=== PATIENT | male | born 1930 | race Caucasian/White ===

== ENCOUNTER 2016-10-30 14:22 | Emergency (ER) | payer MEDICARE ==
[~2016-10-30 14:22] MED LIST: ACCU10 PO; ACCU20 PO; ACTOS30 PO; ASAB PO; COREG12 PO; COREG3 PO; COREG6 PO; CRESTOR10 PO; CRESTOR5 MG PO; FLOMAX0.4 M1 OR; FLOMAX4 PO; L20 PO; LANTUS SC; LANTUSCART SC; LOFIBRA134 MG PO; LOP25 PO; LOPID6 PO; MEXILETINE OR; MEXILETINE150 MG OR; MEXILETINE250 MG OR; NORV10 PO; PLAVIX PO; PREV30 PO; PRILO PO; STARLIX120 PO; TRADJENTA5 MG PO
[2016-10-30 15:17] LABS: BASOPHILS 0.4 %; BASOPHILS ABSOLUTE 0.03 10/3/uL (0.0-0.16); EOSINOPHILS 4.5 %; EOSINOPHILS ABSOLUTE 0.35 10/3/uL (0.0-0.53); HEMATOCRIT 36.4 % (40.0-51.0); HEMOGLOBIN 12.2 g/dL (13.6-17.8); IMMATURE GRANULOCYTES 0.1 %; IMMATURE GRANULOCYTES ABSOLUTE 0.01 10/3/uL (0.0-0.11); LYMPHOCYTES 15.4 %; LYMPHOCYTES ABSOLUTE 1.21 10/3/uL (0.67-4.30); MEAN CORPUS HGB CONC 33.5 g/dL (32.0-36.0); MEAN CORPUSCULAR HEMOGLOB 29.7 pg (26.0-34.0); MEAN CORPUSCULAR VOLUME 88.6 fL (80-100); MEAN PLATELET VOLUME 10.6 fL (9.2-13.0); MONOCYTES 8.4 %; MONOCYTES ABSOLUTE 0.66 10/3/uL (0.21-1.20); NEUTROPHILS 71.2 %; NEUTROPHILS ABSOLUTE 5.58 10/3/uL (2.02-8.40); PLATELET COUNT 161 10/3/uL (150-400); RBC DISTRIBUTION WIDTH 14.7 % (12.0-16.0); RED CELL COUNT 4.11 10/6/uL (4.7-6.1); WHITE BLOOD CELLS 7.8 10/3/uL (4.5-10.5)
[2016-10-30 15:18] LABS: MANUAL DIFF NO %
[2016-10-30 15:35] LABS: A/G RATIO 1.2 (0.7-1.9); ALBUMIN 3.6 G/DL (3.5-5.0); CALCIUM, SERUM 9.5 MG/DL (8.5-10.4); CHLORIDE, SERUM 104 MMOL/L (96-112); CO2 (CARBON DIOXIDE) 28 MMOL/L (24-34); CREATININE 1.36 MG/DL (0.70-1.30); GFR AFRICAN AMERICAN 53 ML/MIN (>=60); GFR NON AFRICAN AMERICAN 46 ML/MIN (>=60); POTASSIUM, SERUM 4.2 MMOL/L (3.5-5.3); SGOT(AST) 21 U/L (5-40); SGPT(ALT) 26 U/L (5-65); SODIUM, SERUM 140 MMOL/L (135-148); TOTAL BILIRUBIN 0.4 MG/DL (0-1.2); TOTAL PROTEIN 6.6 G/DL (6.0-8.5)
[2016-10-30 15:38] LABS: ALKALINE PHOSPHATASE 77 U/L (45-117); BUN (BLOOD UREA NITROGEN) 19 MG/DL (6-23); GLUCOSE, SERUM 210 MG/DL (60-99)
[2016-10-30 17:14] LABS: C-REACTIVE PROTEIN < 29.0 MG/L (<8.0)
== END 2016-10-30 20:30 | disposition home or self-care (01) ==
LOC: ER 14:22
PROVIDERS: Hospitalist
DX: R51 Headache (principal); Z98.61 Coronary angioplasty status; Z95.1 Presence of aortocoronary bypass graft; E10.9 Type 1 diabetes mellitus without complications; Z88.5 Allergy status to narcotic agent; Z79.899 Other long term (current) drug therapy
CPT/HCPCS: 70496; 70498; 80053; 82962; 85025; 85652; 86140; 93005; 96374; 96375; 99285; J1200; J2765; Q9967

== ENCOUNTER 2017-01-14 12:58 | Inpatient (IN) | payer MEDICARE ==
--- NOTE | ~2017-01-14 | HP ---
History And Physical [id number] [place]. [address] NAME: FRANCES SALDIVAR : [birth year] STATUS : ADM Kalpana PAT#: [id number] AGE: 86 ADM/REG DATE : 01/14/17 MR#: [id number] REPORT SERV DATE: 01/15/17 DICTATED BY: CATRACHITA HUTSON DATE: 01/15/17 REPORT STATUS : Draft TRANSCRIBED BY: MODL DATE: 01/15/17 DATE OF ADMISSION: 01/14/2017 K9 HANDLER: Sean Hartman MD CHIEF COMPLAINT: Fatigue and tired for two months. HISTORY OF PRESENT ILLNESS: A very pleasant 86-year-old white male with known history of CAD, status post reported two MIs and two stents most recently one DUSTIN to vein graft to [facility] placed in 12/2014. The patient also has a history of CABG x5 in 1997. The patient states that on Saturday, 01/12, he fell asleep in a chair on the porch while reading the newspaper. He dropped a glass of water, which broke on the porch and woke him up. He states he has had a previous similar episodes of falling asleep, which is unusual for him. Over the past two months, he reports episodes of fatigue and feeling tired. He denies any chest pain, pressure, or tightness. He denies any hematuria, any melena in the stool, and no change in bruising of his skin. He was seen at [facility] on Saturday, 01/12. Lab and EKG were performed. He states that somebody mentioned "enzymes" to him with recommendation to stay at that facility, but the patient preferred to be discharged home. He states that he got to thinking about those enzymes performed at [facility] and decided to come here for further treatment and evaluation. The patient reports a personal history of two heart attacks. Denies history of stroke, DVT, or pulmonary embolus. The patient denies any recent fever or chills. No palpitations. No syncopal episodes. Denies PND or orthopnea. PAST MEDICAL HISTORY: 1. CAD. a. Reports CO x2. b. History of two stents most recently 12/2014 DUSTIN to vein graft to 1. c. CABG x5 in 1997. 2. Hypertension. 3. Dyslipidemia. 4. IDDM. 5. GERD. 6. Renal insufficiency. 7. Mild COPD. 8. Remote tobacco abuse. 9. RBBB. 10.Newly identified thrombocytopenia. PAST SURGICAL HISTORY: CABG x5 in 1997, bilateral cataract repair, and a skin cancer removed from back. SOCIAL HISTORY: He is . Does not have any children. He is retired, [employer] security. Does not have a structured exercise routine. Quit smoking in 2009. Denies alcohol or illicits. History And Physical [address] [address] NAME: FRANCES SALDIVAR : [birth year] STATUS : ADM Kalpana PAT#: [id number] AGE: 86 ADM/REG DATE : 01/14/17 MR#: [id number] REPORT SERV DATE: 01/15/17 DICTATED BY: CATRACHITA HUTSON DATE: 01/15/17 REPORT STATUS : Draft TRANSCRIBED BY: ROSY DATE: 01/15/17 FAMILY HISTORY: Mother with diabetes. Father with a heart attack in his 80s. REVIEW OF SYSTEMS: A 14-point review of systems performed, significant for HPI including home blood sugars of 110 and recent ER visit to [facility] on 01/12/2017, otherwise complete review of systems obtained and negative. HOME MEDICATIONS: Aspirin 81 mg daily; carvedilol 3.125 twice daily; clopidogrel 75 mg daily; Lasix 20 mg daily; Tresiba 33 units at bedtime; Humalog 12 units at breakfast, 10 units at lunch, 25 units at supper; Prevacid 30 mg daily; Mexitil 250 mg daily; Optivite daily; Flomax 0.4 mg daily. PHYSICAL EXAMINATION: VITAL SIGNS: Bilateral blood pressures on arrival, right 179/103, left eye 180/90, this morning 152/84; pulse 80; respirations 17; temperature 97.4; O2 saturation 93% on room air; height 6 feet 0 inches; weight 205 pounds; BMI 28. GENERAL: Cooperative, in no apparent distress. HEENT: Pupils 2 mm, sclera nonicteric. Nares patent. Moist mucous membranes. No xanthelasma. NECK: Trachea midline, no thyromegaly. No JVD. No bruits. LYMPH: No cervical lymphadenopathy. No supraclavicular lymphadenopathy. RESPIRATORY: Unlabored respirations. Breath sounds clear bilaterally to posterior auscultation. No wheezes or rhonchi. CARDIOVASCULAR: Regular rate. No murmur, rub or gallop appreciated. Trace ankle edema. Pedal pulses 1+ bilaterally. Feet cool to touch. ABDOMEN: Soft, nontender, nondistended, normal bowel sounds auscultated throughout. No organomegaly. SKIN: Warm, dry extremities. No pallor, or cyanosis. PSYCHIATRIC: Appropriate affect. Alert, oriented x3. LABORATORY DATA: Troponin 0.13 and 0.13, third pending. Potassium 3.7, BUN 22, creatinine 1.39 (baseline 1.4), glucose 126, magnesium 1.7. WBC 8.1; hemoglobin 12.9; hematocrit 38.5; platelet count 11,000, previously 150-170. EKG is sinus rhythm, RBBB, LAD, LVH, occasional PVC. Echo, 10/2016 ([facility]): EF 60%. Dilated ascending aorta (43 mm). Biatrial enlargement. LVH. Moderate MR. Moderate pulmonary hypertension. PCI 12/2014 put ([facility]): Severe three-vessel CAD. Patent DUBON to LAD, patent vein graft to PDA, and patent vein graft to ramus. [employer] of vein graft to OM2. DUSTIN to vein graft to OM1. CT of brain: No acute intracranial abnormality. Atrophy. Chronic microvascular white matter changes. ASSESSMENT AND PLAN: History And Physical [address] [address] NAME: FRANCES SALDIVAR : [birth year] STATUS : ADM Kalpana PAT#: [id number] AGE: 86 ADM/REG DATE : 01/14/17 MR#: [id number] REPORT SERV DATE: 01/15/17 DICTATED BY: CATRACHITA HUTSON DATE: 01/15/17 REPORT STATUS : Draft TRANSCRIBED BY: MODL DATE: 01/15/17 1. Fatigue. Recheck CBC to follow trend of platelets. Check a TSH. Third troponin pending. The patient has had no chest pain. Consider discontinuing Plavix given thrombocytopenia. Will discuss with rounding physician, doubt need for further cardiac testing during this hospitalization. 2. Coronary artery disease. Continue home medications. 3. Thrombocytopenia. Recheck platelet count via CBC and obtain a recent lab from [facility] as well. 4. Hypertension. Monitor blood pressure. Continue home medications. 5. Dyslipidemia. Continue statin. 6. Insulin-dependent diabetes mellitus. Continue home medications. 7. Further recommendations forthcoming. ZOFIA/MODL FREDERIC Jaffe, MANGLE [employer]ENDER CLOTH-BC / [id number] CC: FREDERIC Jaffe, MANGLE TENDER CLOTH-BC Charla Raya M.D.
--- NOTE | ~2017-01-14 | CN ---
Consultation Report [facility] [address] [place]. [address] NAME: FRANCES SALDIVAR : [birth year] STATUS : ADM IN [facility]#: [id number] AGE: 86 ADM/REG DATE : 01/15/17 MR#: [id number] REPORT SERV DATE: 01/20/17 DICTATED BY: HANSA MENDEZ DATE: 01/20/17 REPORT STATUS : Draft TRANSCRIBED BY: MODL DATE: 01/20/17 NEPHROLOGY CONSULTATION DATE OF CONSULTATION: 01/20/2017 INDICATION FOR CONSULTATION: Acute on chronic kidney disease. HISTORY OF PRESENT ILLNESS: Mr. Saldivar is an 86-year-old male who is seen for acute on chronic kidney disease following initial presentation on 01/15/2017 with chest pain and history of syncopal episodes with nonsustained V-tach. His baseline creatinine ranges 1.3 to 1.4 and has risen from 1.39 to a value of 2.01 since admission. He has been on Lasix and was recently initiated on acyclovir due to encephalopathy with acute delirium and recent history of herpes zoster infection. His spinal tap did reveal elevated protein, elevated lymphocytes, and mild elevation in spinal WBCs with normal glucose. He presently is encephalopathic and nonverbal. PAST MEDICAL HISTORY: CKD stage 3, baseline creatinine 1.3 to 1.4; recent herpes zoster infection; remote RI x2; coronary artery bypass grafting, five vessels 1992, PCI in 2009; type 2 diabetes mellitus; hypertension; hyperlipidemia; COPD; ITP with ongoing thrombocytopenia; anemia; gastroesophageal reflux disease; esophageal stricture requiring dilatation; removal of skin cancers; bilateral cataract surgery, lens implants; BPH; hiatal hernia; osteoarthritis. FAMILY HISTORY: Unable to obtain chart reflex. Mother with diabetes. Father with RI in his 80s. SOCIAL HISTORY: He is a . No children. Retired from [employer] security. Quit smoking in 1992. No alcohol or illicit drug use per chart. ALLERGIES: ALLERGIC TO MORPHINE PER CHART. HOME MEDICATIONS: Aspirin, carvedilol, Plavix, Lasix, regular insulin, Humalog insulin, Prevacid, mexiletine, multivitamin, Flomax. REVIEW OF SYSTEMS: Unable to obtain. PHYSICAL EXAMINATION: GENERAL: Elderly male, nonverbal, somewhat agitated with NG tube in place. VITAL SIGNS: Temp 98.7, blood pressure 170/92, pulse 91, respiratory rate 26. HEENT: Eyes, no scleral icterus. Pupils reactive. Nares with NG tube in place. Throat, no injection. Mucous membranes moist. NECK: No thyromegaly, masses, bruits. CHEST/LUNGS: Late crackles laterally. No wheezes. No rhonchi. Consultation Report [id number] [place]. [address] NAME: FRANCES SALDIVAR : [birth year] STATUS : ADM IN [facility]#: [id number] AGE: 86 ADM/REG DATE : 01/15/17 MR#: [id number] REPORT SERV DATE: 01/20/17 DICTATED BY: HANSA MEDNEZ DATE: 01/20/17 REPORT STATUS : Draft TRANSCRIBED BY: ROSY DATE: 01/20/17 CARDIAC: Regular rate and rhythm. No murmur, gallop, or rub noted. ABDOMEN: Supple. Normoactive bowel sounds. Nontender. No guarding. No hepatosplenomegaly. : Indwelling Charles. RECTAL: Not performed. EXTREMITIES: No edema. No calf tenderness. DERMIS: No rash. No overt skin lesions. NEUROLOGIC: The patient unable to cooperate for exam. MUSCULOSKELETAL: No deformity. No evidence of joint effusion or tenderness. IMPRESSION: 1. Acute on chronic kidney disease possibly prerenal state versus affects of acyclovir, superimposed on chronic kidney disease stage 3. 2. Encephalopathy with acute delirium. 3. Recent herpes zoster infection. 4. Remote myocardial infarction x2. 5. Status post CABG x5 in 1992 with PCI in 2009. 6. Type 2 diabetes mellitus. 7. Hypertension. 8. Chronic obstructive pulmonary disease. 9. Immune thrombocytopenic purpura. 10.Anemia. 11.History of gastroesophageal reflux disease. 12.Remote esophageal dilatation. PLAN: 1. Labs. 2. We would hold Lasix. 3. Renal ultrasound has been obtained and demonstrates normal size kidneys with no obstruction. 4. If creatinine continues to rise, may need to consider hold on acyclovir. SAULO/ROSY Hansa Mendez M.D. / [id number] CC: Priyanka Nichole M.D. Og Coronado M.D.
--- NOTE | ~2017-01-14 | CN ---
Consultation Report [facility] [address] [place]. [address] NAME: RFANCES SALDIVAR : [birth year] STATUS : ADM IN PAT#: [id number] AGE: 86 ADM/REG DATE : 01/15/17 MR#: [id number] REPORT SERV DATE: 01/19/17 DICTATED BY: DATE: REPORT STATUS : Draft TRANSCRIBED BY: MODL DATE: 01/19/17 DATE OF CONSULTATION: 01/19/2017 CHIEF COMPLAINT/REASON FOR CONSULT: Nonsustained ventricular tachycardia. PRIMARY HOSPITAL ADMINISTRATIVE ASSISTANT: Sean Hartman M.D. HISTORY OF PRESENT ILLNESS: Mr. Frances Aquino is an 86-year-old gentleman who was admitted through the Chest Pain Unit on 01/15/2017 for being fatigued and tired for two months. The patient had presented to an outside medical facility at [facility] and was told that he had abnormal cardiac biomarkers and he chose to go home, but then when he got to thinking about it, he came to the [facility] Emergency Department for additional evaluation. The patient had been complaining of falling asleep on the patio while reading a newspaper, dropping glasses of water, and being unusually fatigued and tired. The patient developed an encephalopathy during the course of his administration and it was noted that he had thrombocytopenia and was diagnosed with ITP. The history is taken from the medical record as the patient is unable to give any sort of history. He was transferred to the hospitalist service for further evaluation. Due to his encephalopathy, all his p.o. medications have been held, including aspirin, Plavix, mexiletine, and carvedilol, and the patient developed an 8-beat run of wide-complex tachycardia, likely nonsustained ventricular tachycardia this morning at 0439 hours. PAST MEDICAL HISTORY: 1. History of coronary artery disease, status post coronary bypass grafting x5 in 1998. Most recent cardiac catheterization demonstrated that the DUBON to the LAD, saphenous vein graft to the PDA, and saphenous vein graft to the ramus were patent. PCI was performed to saphenous vein graft to OM1. 2. Hypertension. 3. Hyperlipidemia. 4. Insulin-dependent diabetes mellitus. 5. Chronic kidney disease. 6. COPD. 7. Right bundle-branch block. SOCIAL HISTORY: The patient is . He quit smoking in 2009. He does not use alcohol or extracurricular drugs. FAMILY HISTORY: Significant for mother with diabetes and father with AL in his 80s. REVIEW OF SYSTEMS: All review of systems were reviewed and is negative except for dictated in HPI. PHYSICAL EXAMINATION: VITAL SIGNS: Temperature 99.1, pulses range between 92 and 126 beats per minute, Consultation Report [address] [place]. [address] NAME: FRANCES SALDIVAR : [birth year] STATUS : ADM IN [facility]#: [id number] AGE: 86 ADM/REG DATE : 01/15/17 MR#: [id number] REPORT SERV DATE: 01/19/17 DICTATED BY: DATE: REPORT STATUS : Draft TRANSCRIBED BY: MODL DATE: 01/19/17 respirations 24, oxygen saturations 96% on 3 L nasal cannula, blood pressures 149/85 to 125/74 currently. GENERAL: Mr. Saldivar is unable to answer any sort of questions. He is agitated, rolling back and forth. NECK: I could not appreciate jugular venous distention or carotid bruits. HEART: Tachycardic, regular. Soft S1, S2. I could not appreciate murmurs, rubs, or gallops. LUNGS: Lung bar[place] are diminished, but otherwise clear bilaterally. ABDOMEN: Soft and nontender. EXTREMITIES: Warm and well perfused. There is no pitting edema present. DATA: The EKG demonstrates a right bundle-branch block at a heart rate of 116 beats per minute. PVCs were noted. Ischemic changes are not appreciated. LABORATORY RESULTS: Note a sodium of 141, a potassium of 4.7, a BUN of 50, a creatinine of 1.98, up from 1.28 on admission. Glucose is 296. Hemoglobin 11.5, hematocrit 34.5, platelet count is up to 103. Potassium 4.7, magnesium 2.2. IMPRESSION REPORT AND PLAN: 1. Nonsustained ventricular tachycardia in the setting of having his antiarrhythmic and beta que held due to encephalopathy. 2. Known history of coronary artery disease, status post coronary artery bypass grafting and percutaneous coronary intervention. 3. Hypertension. 4. Hyperlipidemia. 5. Diabetes mellitus. 6. Right bundle-branch block. 7. Chronic obstructive pulmonary disease. 8. Idiopathic thrombocytopenic purpura with platelet recovery. RECOMMENDATIONS: 1. Would recommend placing an NG tube so that the patient can receive his Coreg and mexiletine. Would give IV metoprolol now while waiting for the IV labetalol drip to be started. 2. Once NG tube can be placed, then the patient can receive his p.o. medications. 3. Now that the platelets have recovered, would resume aspirin. 4. Would treat his underlying conditions. It has been my pleasure to participate in his care. RAGHAV/ROSY Daysi Frias Consultation Report [facility] [address] [place]. [address] NAME: FRANCES SALDIVAR : [birth year] STATUS : ADM IN [facility]#: [id number] AGE: 86 ADM/REG DATE : 01/15/17 MR#: [id number] REPORT SERV DATE: 01/19/17 DICTATED BY: DATE: REPORT STATUS : Draft TRANSCRIBED BY: MODL DATE: 01/19/17 Charla Lemus / [id number] CC: Charla Blankenship M.D.
--- NOTE | ~2017-01-14 | CN ---
Consultation Report [facility] [address] [place]. [address] NAME: FRANCES SALDIVAR : [birth year] STATUS : ADM IN PAT#: [id number] AGE: 86 ADM/REG DATE : 01/15/17 MR#: [id number] REPORT SERV DATE: 01/16/17 DICTATED BY: RUPINDER WYATT DATE: 01/16/17 REPORT STATUS : Draft TRANSCRIBED BY: MODL DATE: 01/16/17 NEUROLOGY CONSULTATION DATE OF CONSULTATION: 01/16/2017 REASON FOR CONSULTATION: Syncopal episodes with LOC and acute delirium. HOSPITALIST: Susan Moctezuma, MSN, [employer]-BC. ANALYTICAL STRATEGIST: Dr. Sean Hartman. HISTORY OF PRESENT ILLNESS: The patient is an 86-year-old male, who has a known history of coronary artery disease. He has had two MIs with recent stent placements. He also had a coronary artery bypass grafting in 1997. Recently, he has had episodes of syncope with LOC. For example, on Friday 01/12, he was on the porch reading a newspaper, he fell asleep, and the glass of water fell out of his hand, it broke on the porch, and then woke him up. He states that, he has had similar episodes recently which is very unusual for him. He also reports that he has had a lot of generalized fatigue. He went to [facility] on that day, 01/12/2017, he had some diagnostic testing done. When he heard that he was going to have cardiac testing done, he stated that he preferred to be discharged home, and came to [facility] for further evaluation and treatment. When he came to [facility], it was found that his platelet count was low. Hematology was consulted and it was determined that he had ITP. Consequently, he was placed on IVIG and high doses of Decadron (40 mg daily). He received his first dose yesterday evening and during the night, he became delirious (agitated and confused). PAST MEDICAL HISTORY: Hypertension, dyslipidemia, GERD, diabetes mellitus type 2, renal insufficiency (chronic kidney disease), mild COPD, coronary artery disease, NM x2, right bundle branch block, thrombocytopenia with a new diagnosis of ITP, history of PVCs controlled on mexiletine, mitral valve prolapse with moderate mitral regurgitation, history of tobacco abuse. PAST SURGICAL HISTORY: Coronary artery bypass grafting x5 in 1997, bilateral cataract extraction with lens implantation, skin cancer removal from his back, stent placement in 2015. HOME MEDICATIONS: Include aspirin 81 mg daily, Coreg 6.25 mg b.i.d., Plavix 75 mg daily, Lasix 20 mg daily, Tresiba FlexTouch U-100 insulin Pen 32 units at bedtime, Humalog insulin 12 units subcu with breakfast and 10 units subcu with lunch, and 25 units with supper, Prevacid 30 mg daily, Mexitil 250 mg daily, Optivite tablet daily, and Flomax 0.4 mg at bedtime. ALLERGIES: MORPHINE. Consultation Report [address] [place]. [address] NAME: FRANCES SALDIVAR : [birth year] STATUS : ADM IN [facility]#: [id number] AGE: 86 ADM/REG DATE : 01/15/17 MR#: [id number] REPORT SERV DATE: 01/16/17 DICTATED BY: RUPINDER WYATT DATE: 01/16/17 REPORT STATUS : Draft TRANSCRIBED BY: ROSY DATE: 01/16/17 SOCIAL HISTORY: The patient is , this is his second . He has no children. He is retired from a security company. He quit smoking in 2009. He denies alcohol or illicits. FAMILY HISTORY: His mother had diabetes. Father in his 80s from an NM. REVIEW OF SYSTEMS: Unobtainable from the patient himself, he is delirious, please refer to HPI for pertinent positives. PHYSICAL EXAMINATION: GENERAL: The patient is an 86-year-old male, who stands 182.88 cm and weighs 93.07 kg. VITAL SIGNS: He is afebrile, heart rate is 118, respiratory rate 13, O2 saturations on room air 95%, blood pressure 179/89. NEURO: The patient at this time is currently sleeping half an hour earlier. He was awake. He was confused, agitated, combative, and belligerent. He would not follow commands; however he was moving all four extremities. There were no obvious focal deficits. Unable to perform a good neuro examination, the patient was uncooperative. NECK: No carotid bruits. No obvious JVD. CARDIAC: Regular rate and rhythm. LUNG: Sounds relatively clear. LABORATORY DATA: CBC, platelet count is 11, earlier platelet count was 3. BMP relatively normal. BUN is 23, creatinine 1.28 with a glucose of 128. Cholesterol values are relatively normal, but HDL is 31 and triglycerides 169. Albumin 3.2. Troponin 0.11. CT of the brain without contrast, no acute changes. Chest x-ray, portable chest x-ray, no acute changes, cardiomegaly, basilar atelectasis or questionable infiltrate. Ultrasound of the liver, benign splenic granuloma, some renal cyst. ASSESSMENT/PLAN: 1. Acute delirium, etiology questionable; however, it is most likely related to the recent addition of IV Decadron. At this point, the patient will undergo an MRI of the brain with and without gadolinium if he is calmer. He will have an EEG done to rule out seizure activity. Lab work will be checked. The patient will receive IV Ativan, low dose every 8 hours p.r.n. if needed and be placed on a low-dose of Seroquel. The patient would not be a good candidate for IM Geodon since he does have a cardiac arrhythmia history. 2. Idiopathic thrombocytopenic purpura, this is being treated per Hematology. The large dose of daily steroids is most likely the cause of his delirium. 3. Fatigue with syncopal episodes and loss of consciousness, orthostatic vital signs will be checked on the patient every shift, and recorded in progress notes. Again, the patient will have an EEG to rule out seizure activity and an MRI to rule out any structural abnormalities. Lastly, the patient should undergo an outpatient sleep study to rule out obstructive sleep apnea. Thank you again for including us in consultation. We will follow with you. Consultation Report [address] [place]. [address] NAME: FRANCES SALDIVAR : [birth year] STATUS : ADM IN PAT#: [id number] AGE: 86 ADM/REG DATE : 01/15/17 MR#: [id number] REPORT SERV DATE: 01/16/17 DICTATED BY: RUPINDER WYATT DATE: 01/16/17 REPORT STATUS : Draft TRANSCRIBED BY: ROSY DATE: 01/16/17 AELX/ROSY Rupinder Wyatt DNP, [facility] / [id number] CC: Charla Blankenship M.D. Robert Berglund, M.D. Joyce Beardsley, MSN, [facility]
--- NOTE | ~2017-01-14 | EEG ---
Electroencephalogram [facility] [address] [place]. [address] NAME: FRANCES SALDIVAR : [birth year] STATUS : ADM IN PAT#: [id number] AGE: 86 ADM/REG DATE : 01/15/17 MR#: [id number] REPORT SERV DATE: 01/21/17 DICTATED BY: DATE: REPORT STATUS : Draft TRANSCRIBED BY: MODL DATE: 01/21/17 CLINICAL INDICATION: Encephalopathy. DESCRIPTION: This EEG was performed using 10/20 electrode placement system. During the EEG study, generalized slowing was seen. Predominant occipital rhythm of roughly 6 Hz. The patient was noted to have generalized slowing with intermittent fast response during the EEG evaluation. Photic stimulation was performed. No clear driving response was seen. Hyperventilation was not performed secondary to the patient's underlying encephalopathy. The patient achieved drowsy state during the EEG study. INTERPRETATION: This EEG study obtained during awake, drowsy, may be considered abnormal secondary to presence of generalized slowing with intermittent fast brain activities and no electrographic seizure was seen. No seizure activity or focal abnormality was noted. Generalized slowing can be secondary to toxic encephalopathy underlying brain abnormality versus postictal state. Clinical correlation is recommended. [facility]/MODL Darwin Penn MD / [id number] CC: Charla Blankenship M.D.
--- NOTE | ~2017-01-14 | CN ---
Consultation Report [facility] [address] [place]. [address] NAME: FRANCES SALDIVAR : [birth year] STATUS : ADM Kalpana PAT#: [id number] AGE: 86 ADM/REG DATE : 01/14/17 MR#: [id number] REPORT SERV DATE: 01/15/17 DICTATED BY: GURVINDER CARRASCO DATE: 01/15/17 REPORT STATUS : Draft TRANSCRIBED BY: MODL DATE: 01/15/17 DATE OF CONSULTATION: 01/15/2017 Also wanted to transfer to Hospitalist Service. REASON FOR CONSULTATION: Thrombocytopenia. HISTORY OF PRESENT ILLNESS: The patient is an 86-year-old very pleasant male who was admitted initially by swimming pool salesperson for fatigue and tiredness for approximately two months and abnormal troponin. The patient denied any chest pain, but he was not feeling well, fatigued, smothering. He had episodes of confusion on and off as well as he had a headache in the beginning of December. In the beginning of December, he saw his primary care physician, and at that time, he was told that he may have shingles on his occipital area, but it was itching, but now patient does not have any changes consistent with shingles on his scalp. The patient was found to have thrombocytopenia, and for the thrombocytopenia, swimming pool salesperson was requesting to change the patient to Hospitalist Service. The patient denies any chest pain. No shortness of breath. No abdominal pain. No headache. Now, he is alert, awake, oriented in time, place, and person. History was collected from the patient as well as from the daughter and the patient's . According to them, the patient never had any history of thrombocytopenia before. They do not know if he had thrombocytopenia before. He has history of OH x2, history of two stents most recent in 12/2014, history of coronary artery bypass grafting x5 in 1997, hypertension, dyslipidemia, insulin-dependent diabetes mellitus, gastroesophageal reflux disease, chronic kidney disease, mild COPD, history of remote tobacco abuse, right bundle branch, and also newly identified thrombocytopenia worsening today. PAST SURGICAL HISTORY: Includes coronary artery bypass grafting in 1997, bilateral cataract repair, and skin cancer removed from his back. SOCIAL HISTORY: He is . He does not have children. He is retired. He was working at [employer]. He quit smoking in 1992, used to smoke less than a pack a day. No alcohol. No recreational drug use. FAMILY HISTORY: Mother had diabetes. Father had heart attack in his 80s. ALLERGIES: HE IS ALLERGIC TO MORPHINE. HOME MEDICATIONS: Include aspirin 81 mg daily, carvedilol 3.125 p.o. daily, Plavix 75 mg daily, Lasix 20 mg daily, insulin regular degludec 32 units at bedtime, Humalog 12 units with breakfast, insulin Humalog 10 units with lunch and 25 units with supper, Prevacid 30 mg daily. mexiletine 250 daily, multivitamins daily, Flomax 0.4 mg daily for BPH. PHYSICAL EXAMINATION: GENERAL: A well-nourished, well-developed male, not in acute distress. Resting quietly. VITAL SIGNS: Blood pressure 162/93, temperature 98.5, heart rate 85, respiratory rate 20, Consultation Report [facility] [id number] [place]. [address] NAME: FRANCES SALDIVAR : [birth year] STATUS : ADM Kalpana PAT#: [id number] AGE: 86 ADM/REG DATE : 01/14/17 MR#: [id number] REPORT SERV DATE: 01/15/17 DICTATED BY: GURVINDER CARRASCO DATE: 01/15/17 REPORT STATUS : Draft TRANSCRIBED BY: ROSY DATE: 01/15/17 oxygen saturation 96% on room air, temperature 97.4, 98.5. HEENT: Head atraumatic, normocephalic. Conjunctivae clear. Pupils are equal and reactive to light and accommodation. Extraocular muscles are intact. NECK: Supple. Trachea is midline. No supraclavicular or cervical lymphadenopathy. LUNGS: Clear to auscultation bilaterally. Normal respiratory effort. CARDIOVASCULAR: Regular rate and rhythm. Point of maximal impulse not displaced. ABDOMEN: Soft, nontender, nondistended. Positive normoactive bowel sounds. EXTREMITIES: No clubbing, cyanosis, or edema. SKIN: Normal color and turgor. Skin on the scalp does not show any changes of shingles, looks clean and intact. NEUROLOGIC: He is awake. He is alert, oriented in time, place, and person. Muscle strength is 5/5 bilaterally on upper and lower extremities. LABORATORY RESULTS: Sodium 139, potassium 3.7, chloride 103, carbon dioxide 30, BUN 22, creatinine 1.39, blood sugar 126. Troponin 0.13. Magnesium 1.7. White count 6.4, hemoglobin 12.7, hematocrit 37.9, platelet count 6000 and yesterday, his platelet count was 11,000. Chest x-ray showed cardiomegaly and right basilar atelectasis, or infiltrate. DIAGNOSTIC STUDIES: CT of the brain without contrast done on 01/14/2017, no acute intracranial pathology, atrophy, chronic microvascular white matter ischemic changes. EKG done 01/15 showed sinus rhythm with occasional premature ventricular contractions, right bundle-branch block, and left ventricular hypertrophy. ASSESSMENT AND PLAN: This is a very pleasant 86-year-old male who was initially admitted by swimming pool salesperson for elevated troponin, currently swimming pool salesperson is not planning any workup for his elevated troponin since it stayed stable and Dr. Mcdonnell recommended to change service to a hospitalist since there is no any evidence of OH according to swimming pool salesperson. We will accept this transfer and for the reason of thrombocytopenia, we will check HIT panel on this patient. We will order ultrasound on the liver and spleen as well as we will recheck his liver enzymes. His Plavix is already stopped, we will ask swimming pool salesperson if it is okay to stop baby aspirin also. He already had a CT on the head, which did not show any bleeding. We will monitor this patient closely, do a thrombocytopenia workup, and solar panel installation supervisor will be consulted and my partner will see this patient starting tomorrow morning. Everything was discussed with the patient and family. MG/ROSY Gurvinder Carrasco M.D. Consultation Report [address] [place]. [address] NAME: FRANCES SALDIVAR : [birth year] STATUS : ADM Kalpana PAT#: [id number] AGE: 86 ADM/REG DATE : 01/14/17 MR#: [id number] REPORT SERV DATE: 01/15/17 DICTATED BY: GURVINDER CARRASCO DATE: 01/15/17 REPORT STATUS : Draft TRANSCRIBED BY: MODL DATE: 01/15/17 / [id number] CC: Susan Moctezuma, FREDERIC, DECAL APPLIER- Og Coronado M.D.
--- NOTE | ~2017-01-14 | CN ---
Consultation Report [facility] [id number] [place]. [address] NAME: FRANCES SALDIVAR : [birth year] STATUS : ADM IN PAT#: [id number] AGE: 86 ADM/REG DATE : 01/15/17 MR#: [id number] REPORT SERV DATE: 01/16/17 DICTATED BY: LEROY DONNELLY MARK SANDERS DATE: 01/15/17 REPORT STATUS : Draft TRANSCRIBED BY: MODL DATE: 01/15/17 CONSULTATION NOTE. DATE OF CONSULTATION: 01/15/2017 REASON FOR CONSULTATION: Severe thrombocytopenia. CLINICIAN REQUESTING CONSULTATION: Dr. Nichole. HISTORY OF PRESENT ILLNESS: Mr. Saldivar is an 86-year-old white male who was admitted with fatigue for approximately two months. He has a history of coronary artery disease and has had two MIs with stent placement as well as a CABG in 1997. He was noted at admission on 01/14/2017 to have a platelet count of 11,000. It has decreased to 6000 today, and on recheck it is 3000. Prior to this admission, his platelet count has ranged from approximately 120 to 290,000 since 2009. He denies any bleeding, particularly blood in the stool or nosebleeds. He has easy bruising, says this has been present for quite a long time. He otherwise feels well. Denies any cough, fevers, chills, rashes, nausea, vomiting, diarrhea, muscle aches, or pain. PAST MEDICAL HISTORY: 1. Coronary artery disease with stent placement in 2014 and CABG in 1997. 2. Hypertension. 3. Dyslipidemia. 4. Insulin-dependent diabetes. 5. GERD. 6. Chronic kidney disease. 7. COPD. SOCIAL HISTORY: He is . He does not drink alcohol. He quit smoking in 1992. FAMILY HISTORY: Mother had diabetes. Father had heart attack. ALLERGIES: ALLERGIC TO MORPHINE. HOME MEDICATIONS: 1. Aspirin 81 mg daily. 2. Coreg 3.125 daily. 3. Plavix 75 mg daily. 4. Lasix 20 mg daily. 5. Insulin. 6. Prevacid 30 mg daily. 7. Mexitil 250 mg daily. 8. Multivitamin. 9. Flomax 0.4 mg at bedtime. Consultation Report [facility] [address] [facility] [place]. [address] NAME: FRANCES SALDIVAR : [birth year] STATUS : ADM IN PAT#: [id number] AGE: 86 ADM/REG DATE : 01/15/17 MR#: [id number] REPORT SERV DATE: 01/16/17 DICTATED BY: LEROY DONNELLY MARK SANDERS DATE: 01/15/17 REPORT STATUS : Draft TRANSCRIBED BY: ROSY DATE: 01/15/17 REVIEW OF SYSTEMS: A 12-point review of systems negative except per HPI. PHYSICAL EXAMINATION: VITAL SIGNS: Blood pressure 142/86, pulse 72, temperature 97.4. GENERAL APPEARANCE: Elderly, no acute distress. HEENT: Anicteric sclerae. Oropharynx clear. NECK: Supple. No lymphadenopathy. CARDIOVASCULAR: Regular rate and rhythm. Normal S1, S2. LUNGS: Clear auscultation bilaterally. Fair effort. ABDOMEN: Soft, nontender. No organomegaly. EXTREMITIES: No clubbing, cyanosis, or edema. LABORATORY DATA: White count 5700, hemoglobin 12.3 g, platelets 3000. Creatinine 1.39. Troponin 0.11 and it was 0.13 at admission. ASSESSMENT AND PLAN: Mr. Saldivar is an 86-year-old white male with severe thrombocytopenia. On admission, his platelets were 11,000 and decreased to 3000. He has not had bleeding. This is clinically consistent with ITP. I have discussed this with the patient. I recommend a platelet transfusion tonight because his platelets are severely low. Additionally, I will start Decadron 40 mg daily as well as the plan on giving IVIG tomorrow morning. We did discuss, with the steroids, that we would need to monitor his blood sugars more closely. He does have a history of coronary artery disease and is on Plavix, which has been held, but he continues on aspirin. I have recommended that we stop the aspirin at this time as his risk for developing a major bleed on aspirin with platelets of 3 is much higher than his risk for CA at this time. I discussed the case with the hospitalist, Dr. Nichole and she is in agreement with the plan. Thank you for the consultation. KIMBERLY/ROSY Patrick Donnelly IV, M.D. / [id number] CC: Priyanka Nichole M.D.
--- NOTE | ~2017-01-14 | DS ---
Discharge Summary [facility] [address] [facility] [place]. [address] NAME: FRANCES SALDIVAR : [birth year] STATUS : DIS IN PAT#: [id number] AGE: 86 ADM/REG DATE : 01/15/17 MR#: [id number] REPORT SERV DATE: 02/23/17 DICTATED BY: Carlota WYNNE DATE: 02/23/17 REPORT STATUS : Draft TRANSCRIBED BY: ROSY DATE: 02/23/17 ADMISSION DATE: 01/15/2017 DISCHARGE DATE: 01/22/2017 DATE OF : 01/22/2017. DIAGNOSES AT THE TIME OF : Metabolic encephalopathy, etiology unclear; ITP, resolved; paroxysmal atrial fibrillation; nonsustained ventricular tachycardia; coronary artery disease; hypertension; and acute kidney injury. CONSULTATIONS: Neurology, Nephrology, Hematology. PROCEDURES: None. BRIEF SUMMARY: An 86-year-old male patient was initially admitted to the Cardiac Service, was found to have severe thrombocytopenia and transferred to the Hospitalist Service and ultimately determined to have ITP, seen and evaluated by Hematology and treated with a combination of high-dose steroids and IVIG. Due to the patient's altered mental status and multiple medical problems, he was managed in the Intermediate Care Unit. The patient's platelet count actually responded appropriately to the combination of steroid and IVIG; however, his encephalopathy persisted. The patient had a recent diagnosis of shingles, as a result, acyclovir was added for the possibility of herpetic encephalitis. The patient was unable to have a lumbar puncture due to his thrombocytopenia. The patient ultimately did have an MRI of the brain. This was unrevealing. He was seen and evaluated by Neurology. The patient did undergo EEG which also showed diffuse slowing and it was nondiagnostic. The family desired DNR status. The patient continued to be treated with supportive care and close observation with ongoing management of his ITP, his acute kidney injury, his multiple other medical problems, and management of his encephalopathy. The patient ultimately had negative HSV titers and acyclovir was discontinued. He ultimately succumbed to his medical problems and was pronounced on 01/22/2017. Per hospital protocol, there was no autopsy requested. No organ donation was appropriate, and the certificate was completed by myself at the time of the patient's . DICTATED BY: Carlota Wynne M.D. [facility]/ROSY Carlota Wynne M.D. / [id number] CC: Discharge Summary [facility] [address] [place]. [address] NAME: FRANCES SALDIVAR : [birth year] STATUS : DIS IN PAT#: [id number] AGE: 86 ADM/REG DATE : 01/15/17 MR#: [id number] REPORT SERV DATE: 02/23/17 DICTATED BY: Carlota WYNNE DATE: 02/23/17 REPORT STATUS : Draft TRANSCRIBED BY: ROSY DATE: 02/23/17 Charla Morgan M.D.
[2017-01-14 14:02] LABS: BASOPHILS 0.5 %; BASOPHILS ABSOLUTE 0.04 10/3/uL (0.0-0.16); EOSINOPHILS 3.9 %; EOSINOPHILS ABSOLUTE 0.31 10/3/uL (0.0-0.53); ER CBC TAT 0 Hrs 09 Mins; HEMATOCRIT 38.5 % (40.0-51.0); HEMOGLOBIN 12.9 g/dL (13.6-17.8); IMMATURE GRANULOCYTES 0.4 %; IMMATURE GRANULOCYTES ABSOLUTE 0.03 10/3/uL (0.0-0.11); LYMPHOCYTES ABSOLUTE 1.29 10/3/uL (0.67-4.30); MEAN CORPUS HGB CONC 33.5 g/dL (32.0-36.0); MEAN CORPUSCULAR HEMOGLOB 29.3 pg (26.0-34.0); MEAN CORPUSCULAR VOLUME 87.3 fL (80-100); MONOCYTES 8.3 %; MONOCYTES ABSOLUTE 0.67 10/3/uL (0.21-1.20); NEUTROPHILS 70.9 %; NEUTROPHILS ABSOLUTE 5.71 10/3/uL (2.02-8.40); RBC DISTRIBUTION WIDTH 14.4 % (12.0-16.0); RED CELL COUNT 4.41 10/6/uL (4.7-6.1); WHITE BLOOD CELLS 8.1 10/3/uL (4.5-10.5)
[2017-01-14 14:04] LABS: PLATELET COUNT 11 10/3/uL (150-400)
[2017-01-14 14:05] LABS: INTERNATIONAL NORMAL RATI 1.3 UNITS (-); MANUAL DIFF NO %; PROTIME (NOT ORD) 15.8 SEC (12.0-14.5)
[2017-01-14 14:13] LABS: BUN (BLOOD UREA NITROGEN) 22 MG/DL (6-23); CALCIUM, SERUM 9.9 MG/DL (8.5-10.4); CHEST PAIN PROFILE TAT 0 Hrs 20 Mins; CHLORIDE, SERUM 103 MMOL/L (96-112); CO2 (CARBON DIOXIDE) 30 MMOL/L (24-34); CREATININE 1.39 MG/DL (0.70-1.30); GFR AFRICAN AMERICAN 52 ML/MIN (>=60); GFR NON AFRICAN AMERICAN 45 ML/MIN (>=60); GLUCOSE, SERUM 126 MG/DL (60-99); POTASSIUM, SERUM 3.7 MMOL/L (3.5-5.3); SODIUM, SERUM 139 MMOL/L (135-148); TROPONIN I 0.13 NG/ML (<0.05)
[2017-01-14 14:17] LABS: HYPOCHROMIA 1+ (3-10/OIF) (0-2/OIF)
[2017-01-14 14:18] LABS: SPHEROCYTES FEW (3-10/OIF)
[2017-01-14] MEDS ORDERED: *UNABLE1 (15:15)
[2017-01-14] MEDS ORDERED: COREG3 PO (15:41)
[2017-01-14] MEDS ORDERED: TRESIBA FL100 UNIT/1 SC (15:42)
[2017-01-14] MEDS ORDERED: HUMALOG SC ×3 (15:43→15:44)
[2017-01-14] MEDS ORDERED: L20 PO (15:44)
[2017-01-14] MEDS ORDERED: PREV30 PO (15:44)
[2017-01-14] MEDS ORDERED: PLAVIX PO (15:44)
[2017-01-14] MEDS ORDERED: OPTIVITE PO (15:45)
[2017-01-14] MEDS ORDERED: MEXILETINE PO (15:45)
[2017-01-14] MEDS ORDERED: ASAB PO (15:45)
[2017-01-14] MEDS ORDERED: FLOMAX4 PO (15:45)
[2017-01-15 10:22] LABS: BASOPHILS 0.5 %; BASOPHILS ABSOLUTE 0.03 10/3/uL (0.0-0.16); EOSINOPHILS 3.6 %; EOSINOPHILS ABSOLUTE 0.23 10/3/uL (0.0-0.53); HEMATOCRIT 37.9 % (40.0-51.0); HEMOGLOBIN 12.7 g/dL (13.6-17.8); IMMATURE GRANULOCYTES 0.2 %; IMMATURE GRANULOCYTES ABSOLUTE 0.01 10/3/uL (0.0-0.11); LYMPHOCYTES 14.5 %; LYMPHOCYTES ABSOLUTE 0.92 10/3/uL (0.67-4.30); MEAN CORPUS HGB CONC 33.5 g/dL (32.0-36.0); MEAN CORPUSCULAR HEMOGLOB 28.9 pg (26.0-34.0); MEAN CORPUSCULAR VOLUME 86.3 fL (80-100); MONOCYTES 8.3 %; MONOCYTES ABSOLUTE 0.53 10/3/uL (0.21-1.20); NEUTROPHILS 72.9 %; NEUTROPHILS ABSOLUTE 4.64 10/3/uL (2.02-8.40); RBC DISTRIBUTION WIDTH 14.6 % (12.0-16.0); RED CELL COUNT 4.39 10/6/uL (4.7-6.1); WHITE BLOOD CELLS 6.4 10/3/uL (4.5-10.5)
[2017-01-15 10:23] LABS: MANUAL DIFF NO %; PLATELET COUNT 6 10/3/uL (150-400)
[2017-01-15 10:43] LABS: ELLIPTOCYTES 1+ (3-10/OIF) (0-2/OIF); POIKILOCYTOSIS 1+ (5-10/OIF) (0-5/OIF)
[2017-01-15 13:27] LABS: BASOPHILS 0.5 %; BASOPHILS ABSOLUTE 0.03 10/3/uL (0.0-0.16); EOSINOPHILS ABSOLUTE 0.17 10/3/uL (0.0-0.53); HEMATOCRIT 37.4 % (40.0-51.0); HEMOGLOBIN 12.3 g/dL (13.6-17.8); IMMATURE GRANULOCYTES 0.2 %; IMMATURE GRANULOCYTES ABSOLUTE 0.01 10/3/uL (0.0-0.11); LYMPHOCYTES 19.5 %; LYMPHOCYTES ABSOLUTE 1.11 10/3/uL (0.67-4.30); MEAN CORPUS HGB CONC 32.9 g/dL (32.0-36.0); MEAN CORPUSCULAR HEMOGLOB 28.5 pg (26.0-34.0); MEAN CORPUSCULAR VOLUME 86.6 fL (80-100); MONOCYTES 7.2 %; MONOCYTES ABSOLUTE 0.41 10/3/uL (0.21-1.20); NEUTROPHILS 69.6 %; NEUTROPHILS ABSOLUTE 3.97 10/3/uL (2.02-8.40); RBC DISTRIBUTION WIDTH 14.7 % (12.0-16.0); RED CELL COUNT 4.32 10/6/uL (4.7-6.1); WHITE BLOOD CELLS 5.7 10/3/uL (4.5-10.5)
[2017-01-15 13:32] LABS: MANUAL DIFF NO %; PLATELET COUNT 3 10/3/uL (150-400)
[2017-01-15 13:49] LABS: FREE T4 1.22 NG/DL (0.76-1.46); TROPONIN I 0.11 NG/ML (<0.05); ULTRASENSITIVE TSH 1.91 MCIU/ML (0.358-3.740)
[2017-01-16 03:44] LABS: BASOPHILS 0.3 %; BASOPHILS ABSOLUTE 0.02 10/3/uL (0.0-0.16); EOSINOPHILS ABSOLUTE 0.13 10/3/uL (0.0-0.53); HEMATOCRIT 35.7 % (40.0-51.0); IMMATURE GRANULOCYTES 0.3 %; IMMATURE GRANULOCYTES ABSOLUTE 0.02 10/3/uL (0.0-0.11); LYMPHOCYTES 9.2 %; MEAN CORPUS HGB CONC 33.6 g/dL (32.0-36.0); MEAN CORPUSCULAR HEMOGLOB 29.1 pg (26.0-34.0); MEAN CORPUSCULAR VOLUME 86.4 fL (80-100); MONOCYTES 4.9 %; MONOCYTES ABSOLUTE 0.32 10/3/uL (0.21-1.20); NEUTROPHILS 83.3 %; NEUTROPHILS ABSOLUTE 5.41 10/3/uL (2.02-8.40); RBC DISTRIBUTION WIDTH 14.3 % (12.0-16.0); RED CELL COUNT 4.13 10/6/uL (4.7-6.1); WHITE BLOOD CELLS 6.5 10/3/uL (4.5-10.5)
[2017-01-16 03:50] LABS: MANUAL DIFF NO %; PLATELET COUNT 11 10/3/uL (150-400)
[2017-01-16 04:04] LABS: ALBUMIN 3.2 G/DL (3.5-5.0); ALKALINE PHOSPHATASE 76 U/L (45-117); BUN (BLOOD UREA NITROGEN) 23 MG/DL (6-23); CALCIUM, SERUM 9.9 MG/DL (8.5-10.4); CHLORIDE, SERUM 102 MMOL/L (96-112); CO2 (CARBON DIOXIDE) 26 MMOL/L (24-34); CREATININE 1.28 MG/DL (0.70-1.30); GFR AFRICAN AMERICAN 58 ML/MIN (>=60); GFR NON AFRICAN AMERICAN 50 ML/MIN (>=60); GLOBULIN 3.1 G/DL (2.5-4.1); GLUCOSE, SERUM 128 MG/DL (60-99); POTASSIUM, SERUM 3.8 MMOL/L (3.5-5.3); SGOT(AST) 23 U/L (5-40); SGPT(ALT) 32 U/L (5-65); SODIUM, SERUM 136 MMOL/L (135-148); TOTAL PROTEIN 6.3 G/DL (6.0-8.5)
[2017-01-16 04:05] LABS: TOTAL BILIRUBIN 1.3 MG/DL (0-1.2)
[2017-01-16 04:10] LABS: RBC MORPHOLOGY NORM (NORMAL)
[2017-01-16 13:19] LABS: HEPARIN-INDUCED PLATELET AB NEGATIVE (NEGATIVE); HIT PATIENT O.D. 0.141 OD (0.000-0.299)
[2017-01-16 14:26] LABS: PROCALCITONIN <0.05 ng/mL (<0.5)
[2017-01-16 15:06] LABS: C-REACTIVE PROTEIN 27.1 MG/L (<8.0); CHOLESTEROL 73 MG/DL (< 200)
[2017-01-16 15:08] LABS: CHOL/HDL RATIO(NOT ORDER) 1.7 (0-5); HDL CHOLESTEROL 42 MG/DL (> 39); LDL CHOLESTEROL 11 MG/DL (< 130); NON-HDL CHOLESTEROL 31 MG/DL (< 160); TRIGLYCERIDE 100 MG/DL (< 150)
[2017-01-17 04:59] LABS: BASOPHILS 0.7 %; BASOPHILS ABSOLUTE 0.03 10/3/uL (0.0-0.16); EOSINOPHILS 3.1 %; EOSINOPHILS ABSOLUTE 0.13 10/3/uL (0.0-0.53); HEMOGLOBIN 11.1 g/dL (13.6-17.8); IMMATURE GRANULOCYTES 0.5 %; IMMATURE GRANULOCYTES ABSOLUTE 0.02 10/3/uL (0.0-0.11); LYMPHOCYTES 15.3 %; LYMPHOCYTES ABSOLUTE 0.65 10/3/uL (0.67-4.30); MEAN CORPUS HGB CONC 33.6 g/dL (32.0-36.0); MEAN CORPUSCULAR HEMOGLOB 29.1 pg (26.0-34.0); MEAN CORPUSCULAR VOLUME 86.4 fL (80-100); MONOCYTES 12.2 %; MONOCYTES ABSOLUTE 0.52 10/3/uL (0.21-1.20); NEUTROPHILS 68.2 %; NEUTROPHILS ABSOLUTE 2.91 10/3/uL (2.02-8.40); RBC DISTRIBUTION WIDTH 14.7 % (12.0-16.0); RED CELL COUNT 3.82 10/6/uL (4.7-6.1); WHITE BLOOD CELLS 4.3 10/3/uL (4.5-10.5)
[2017-01-17 05:03] LABS: PLATELET COUNT 17 10/3/uL (150-400)
[2017-01-17 05:04] LABS: MANUAL DIFF NO %
[2017-01-17 05:10] LABS: BUN (BLOOD UREA NITROGEN) 23 MG/DL (6-23); CALCIUM, SERUM 9.7 MG/DL (8.5-10.4); CHLORIDE, SERUM 102 MMOL/L (96-112); CO2 (CARBON DIOXIDE) 26 MMOL/L (24-34); GFR AFRICAN AMERICAN 62 ML/MIN (>=60); GFR NON AFRICAN AMERICAN 54 ML/MIN (>=60); POTASSIUM, SERUM 3.8 MMOL/L (3.5-5.3); SODIUM, SERUM 137 MMOL/L (135-148)
[2017-01-17 05:11] LABS: GLUCOSE, SERUM 178 MG/DL (60-99)
[2017-01-17 05:24] LABS: RBC MORPHOLOGY NORM (NORMAL)
[2017-01-17 09:53] LABS: ASCORBIC ACID (UR NOT ORDER) NEG (NEG); BILIRUBIN, URINE NEGATIVE (NEG); KETONE, URINE TRACE MG/DL (NEG); LEUKOCYTE ESTERASE(NOT OR TRACE (NEG); WBC (NOT ORDERED) (RFLEX) 16 (0-5)
[2017-01-18 04:22] LABS: BASOPHILS 0 %; EOSINOPHILS 0 %; HEMATOCRIT 34.2 % (40.0-51.0); HEMOGLOBIN 11.5 g/dL (13.6-17.8); IMMATURE GRANULOCYTES 0.2 %; IMMATURE GRANULOCYTES ABSOLUTE 0.01 10/3/uL (0.0-0.11); LYMPHOCYTES 7.6 %; LYMPHOCYTES ABSOLUTE 0.44 10/3/uL (0.67-4.30); MEAN CORPUS HGB CONC 33.6 g/dL (32.0-36.0); MEAN CORPUSCULAR HEMOGLOB 29.1 pg (26.0-34.0); MEAN CORPUSCULAR VOLUME 86.6 fL (80-100); MEAN PLATELET VOLUME 11.8 fL (9.2-13.0); MONOCYTES 1.2 %; MONOCYTES ABSOLUTE 0.07 10/3/uL (0.21-1.20); NEUTROPHILS ABSOLUTE 5.27 10/3/uL (2.02-8.40); RBC DISTRIBUTION WIDTH 14.5 % (12.0-16.0); RED CELL COUNT 3.95 10/6/uL (4.7-6.1); WHITE BLOOD CELLS 5.8 10/3/uL (4.5-10.5)
[2017-01-18 04:23] LABS: MANUAL DIFF NO %; PLATELET COUNT 36 10/3/uL (150-400)
[2017-01-18 04:45] LABS: A/G RATIO 0.8 (0.7-1.9); ALBUMIN 2.6 G/DL (3.5-5.0); ALKALINE PHOSPHATASE 65 U/L (45-117); CALCIUM, SERUM 9.6 MG/DL (8.5-10.4); CHLORIDE, SERUM 107 MMOL/L (96-112); CREATININE 1.46 MG/DL (0.70-1.30); GFR AFRICAN AMERICAN 49 ML/MIN (>=60); GFR NON AFRICAN AMERICAN 42 ML/MIN (>=60); GLOBULIN 3.4 G/DL (2.5-4.1); GLUCOSE, SERUM 202 MG/DL (60-99); POTASSIUM, SERUM 4.3 MMOL/L (3.5-5.3); SGOT(AST) 29 U/L (5-40); SGPT(ALT) 24 U/L (5-65); SODIUM, SERUM 139 MMOL/L (135-148)
[2017-01-18 04:49] LABS: BUN (BLOOD UREA NITROGEN) 28 MG/DL (6-23); CO2 (CARBON DIOXIDE) 21 MMOL/L (24-34); TOTAL BILIRUBIN 0.8 MG/DL (0-1.2)
[2017-01-18 05:07] LABS: PLATELET ESTIMATE DEC (ADEQUATE)
[2017-01-18 05:08] LABS: RBC MORPHOLOGY NORM (NORMAL)
[2017-01-18 13:27] LABS: ALBUMIN 3.1 G/DL (3.5-5.0); C-REACTIVE PROTEIN 29.5 MG/L (<8.0); INDIRECT BILIRUBIN(NOT ORDER) 0.8 MG/DL (0.1-0.9); TOTAL BILIRUBIN 1.1 MG/DL (0-1.2); TOTAL PROTEIN 7.1 G/DL (6.0-8.5)
[2017-01-18 13:29] LABS: DIRECT BILIRUBIN 0.3 MG/DL (0.0-0.4)
[2017-01-19 05:47] LABS: ASCORBIC ACID (UR NOT ORDER) NEG (NEG); BILIRUBIN, URINE NEGATIVE (NEG); KETONE, URINE TRACE MG/DL (NEG); LEUKOCYTE ESTERASE(NOT OR SMALL (NEG); WBC (NOT ORDERED) (RFLEX) 11 (0-5)
[2017-01-19 06:32] LABS: BASOPHILS 0 %; EOSINOPHILS 0 %; HEMATOCRIT 34.5 % (40.0-51.0); HEMOGLOBIN 11.5 g/dL (13.6-17.8); IMMATURE GRANULOCYTES 0.1 %; IMMATURE GRANULOCYTES ABSOLUTE 0.02 10/3/uL (0.0-0.11); LYMPHOCYTES ABSOLUTE 0.82 10/3/uL (0.67-4.30); MEAN CORPUS HGB CONC 33.3 g/dL (32.0-36.0); MEAN CORPUSCULAR VOLUME 87.1 fL (80-100); MEAN PLATELET VOLUME 11.5 fL (9.2-13.0); MONOCYTES 2.2 %; NEUTROPHILS 91.7 %; NEUTROPHILS ABSOLUTE 12.53 10/3/uL (2.02-8.40); RBC DISTRIBUTION WIDTH 15.4 % (12.0-16.0); RED CELL COUNT 3.96 10/6/uL (4.7-6.1)
[2017-01-19 06:39] LABS: PLATELET COUNT 103 10/3/uL (150-400); WHITE BLOOD CELLS 13.7 10/3/uL (4.5-10.5)
[2017-01-19 06:40] LABS: MANUAL DIFF NO %
[2017-01-19 06:48] LABS: A/G RATIO 0.9 (0.7-1.9); ALKALINE PHOSPHATASE 68 U/L (45-117); CALCIUM, SERUM 9.6 MG/DL (8.5-10.4); CHLORIDE, SERUM 110 MMOL/L (96-112); CO2 (CARBON DIOXIDE) 18 MMOL/L (24-34); GLOBULIN 3.5 G/DL (2.5-4.1); POTASSIUM, SERUM 4.7 MMOL/L (3.5-5.3); SGOT(AST) 46 U/L (5-40); SGPT(ALT) 34 U/L (5-65); SODIUM, SERUM 141 MMOL/L (135-148); TOTAL BILIRUBIN 1.1 MG/DL (0-1.2); TOTAL PROTEIN 6.5 G/DL (6.0-8.5)
[2017-01-19 06:50] LABS: BUN (BLOOD UREA NITROGEN) 50 MG/DL (6-23); CREATININE 1.98 MG/DL (0.70-1.30); GFR AFRICAN AMERICAN 34 ML/MIN (>=60); GFR NON AFRICAN AMERICAN 29 ML/MIN (>=60); GLUCOSE, SERUM 296 MG/DL (60-99)
[2017-01-19 14:46] LABS: GLUCOSE CSF 183 MG/DL (45-70); TOTAL PROTEIN, CSF 52.3 MG/DL (15-45)
[2017-01-19 18:43] LABS: CSF BASO 0 % (NO REF RANGE); CSF EOS 0 % (0-1); CSF LYMPH (NOT ORD) 24 % (28-96); CSF MONO 40 % (16-56); CSF SEGS (NOT ORD) 36 % (0-7)
[2017-01-19 18:44] LABS: CSF APPEARANCE (NOT ORD) CLEAR (CLEAR); CSF COLOR (NOT ORD) COLORLESS (COLORLESS); CSF RBC (NOT ORD) 2 MM3 (NO REFERENCE); CSF WBC (NOT ORD) 3 /uL (0-10); CSF XANTHROCHROMIA NEG (NEG)
[2017-01-20 07:11] LABS: BASOPHILS 0 %; EOSINOPHILS 0 %; HEMOGLOBIN 10.7 g/dL (13.6-17.8); IMMATURE GRANULOCYTES 0.3 %; IMMATURE GRANULOCYTES ABSOLUTE 0.03 10/3/uL (0.0-0.11); LYMPHOCYTES 4.6 %; LYMPHOCYTES ABSOLUTE 0.43 10/3/uL (0.67-4.30); MEAN CORPUS HGB CONC 32.4 g/dL (32.0-36.0); MEAN CORPUSCULAR HEMOGLOB 28.5 pg (26.0-34.0); MEAN PLATELET VOLUME 11.8 fL (9.2-13.0); MONOCYTES ABSOLUTE 0.85 10/3/uL (0.21-1.20); NEUTROPHILS 86.1 %; NEUTROPHILS ABSOLUTE 8.13 10/3/uL (2.02-8.40); PLATELET COUNT 104 10/3/uL (150-400); RBC DISTRIBUTION WIDTH 16.1 % (12.0-16.0); RED CELL COUNT 3.75 10/6/uL (4.7-6.1); WHITE BLOOD CELLS 9.4 10/3/uL (4.5-10.5)
[2017-01-20 07:12] LABS: MANUAL DIFF NO %
[2017-01-20 07:24] LABS: A/G RATIO 0.9 (0.7-1.9); ALKALINE PHOSPHATASE 69 U/L (45-117); BUN (BLOOD UREA NITROGEN) 55 MG/DL (6-23); CALCIUM, SERUM 9.6 MG/DL (8.5-10.4); CHLORIDE, SERUM 115 MMOL/L (96-112); CO2 (CARBON DIOXIDE) 20 MMOL/L (24-34); CREATININE 2.01 MG/DL (0.70-1.30); GFR AFRICAN AMERICAN 33 ML/MIN (>=60); GFR NON AFRICAN AMERICAN 29 ML/MIN (>=60); GLOBULIN 3.4 G/DL (2.5-4.1); GLUCOSE, SERUM 177 MG/DL (60-99); POTASSIUM, SERUM 4.5 MMOL/L (3.5-5.3); SGOT(AST) 61 U/L (5-40); SGPT(ALT) 45 U/L (5-65); SODIUM, SERUM 146 MMOL/L (135-148); TOTAL BILIRUBIN 1.2 MG/DL (0-1.2); TOTAL PROTEIN 6.4 G/DL (6.0-8.5)
[2017-01-20 08:18] LABS: SED RATE 16 MM/HR (0-15)
[2017-01-20 14:00] LABS: CREATININE (RANDOM URINE) 22.8 MG/DL; CREATININE, URINE 22.8 MG/DL; MICROALBUMIN, RANDOM URINE 23.1 MG/DL
[2017-01-21 05:39] LABS: A/G RATIO 0.9 (0.7-1.9); ALBUMIN 2.9 G/DL (3.5-5.0); ALKALINE PHOSPHATASE 65 U/L (45-117); BASOPHILS 0.1 %; BASOPHILS ABSOLUTE 0.01 10/3/uL (0.0-0.16); CALCIUM, SERUM 9.7 MG/DL (8.5-10.4); CHLORIDE, SERUM 118 MMOL/L (96-112); CO2 (CARBON DIOXIDE) 22 MMOL/L (24-34); CREATININE 1.92 MG/DL (0.70-1.30); EOSINOPHILS 0 %; GFR AFRICAN AMERICAN 35 ML/MIN (>=60); GFR NON AFRICAN AMERICAN 30 ML/MIN (>=60); GLOBULIN 3.2 G/DL (2.5-4.1); HEMATOCRIT 33.5 % (40.0-51.0); HEMOGLOBIN 10.7 g/dL (13.6-17.8); IMMATURE GRANULOCYTES 0.4 %; IMMATURE GRANULOCYTES ABSOLUTE 0.03 10/3/uL (0.0-0.11); LYMPHOCYTES 8.3 %; LYMPHOCYTES ABSOLUTE 0.71 10/3/uL (0.67-4.30); MEAN CORPUS HGB CONC 31.9 g/dL (32.0-36.0); MEAN CORPUSCULAR HEMOGLOB 28.5 pg (26.0-34.0); MEAN CORPUSCULAR VOLUME 89.3 fL (80-100); MEAN PLATELET VOLUME 11.7 fL (9.2-13.0); NEUTROPHILS 84.2 %; NEUTROPHILS ABSOLUTE 7.18 10/3/uL (2.02-8.40); PHOSPHORUS, SERUM 3.1 MG/DL (2.5-4.5); PLATELET COUNT 121 10/3/uL (150-400); POTASSIUM, SERUM 4.2 MMOL/L (3.5-5.3); RBC DISTRIBUTION WIDTH 16.1 % (12.0-16.0); RED CELL COUNT 3.75 10/6/uL (4.7-6.1); SGPT(ALT) 52 U/L (5-65); SODIUM, SERUM 149 MMOL/L (135-148); TOTAL PROTEIN 6.1 G/DL (6.0-8.5); WHITE BLOOD CELLS 8.5 10/3/uL (4.5-10.5)
[2017-01-21 05:40] LABS: BUN (BLOOD UREA NITROGEN) 51 MG/DL (6-23); GLUCOSE, SERUM 124 MG/DL (60-99); SGOT(AST) 60 U/L (5-40)
[2017-01-21 05:42] LABS: MANUAL DIFF NO %
[2017-01-21 09:59] LABS: HEPATITIS B SURFACE ANTIGEN NON-REACTIVE (NON-REACT)
[2017-01-21 10:20] LABS: HEPATITIS B CORE AB IGM NON-REACTIVE (NON-REAC); HEPATITIS C ANTIBODY NON-REACTIVE (NON-REACT)
[2017-01-21 10:21] LABS: HEP A ANTIBODY IGM NON-REACTIVE (NON-REACT); HIV COMBO NON-REACTIVE (NON REAC)
[2017-01-21 17:56] LABS: HSV DNA TYPE 1 Not Detected (NOTDET); HSV DNA TYPE 2 Not Detected (NOTDET); SOURCE Serum (())
[2017-01-22 06:57] LABS: HEMATOCRIT 34.4 % (40.0-51.0); MEAN CORPUSCULAR HEMOGLOB 28.6 pg (26.0-34.0); MEAN CORPUSCULAR VOLUME 89.6 fL (80-100); MEAN PLATELET VOLUME 11.2 fL (9.2-13.0); NUCLEATED RED BLOOD CELLS 1.4 /100WBC (0-0); PLATELET COUNT 123 10/3/uL (150-400); RBC DISTRIBUTION WIDTH 16.2 % (12.0-16.0); RED CELL COUNT 3.84 10/6/uL (4.7-6.1); WHITE BLOOD CELLS 9.2 10/3/uL (4.5-10.5)
[2017-01-22 06:59] LABS: MANUAL DIFF YES %
[2017-01-22 07:07] LABS: BUN (BLOOD UREA NITROGEN) 61 MG/DL (6-23); CALCIUM, SERUM 9.4 MG/DL (8.5-10.4); CHLORIDE, SERUM 115 MMOL/L (96-112); CO2 (CARBON DIOXIDE) 23 MMOL/L (24-34); GFR AFRICAN AMERICAN 30 ML/MIN (>=60); GFR NON AFRICAN AMERICAN 26 ML/MIN (>=60); GLUCOSE, SERUM 285 MG/DL (60-99); SODIUM, SERUM 146 MMOL/L (135-148)
[2017-01-22 07:28] LABS: BAND NEUTROPHILS 3 %; EOSINOPHILS 1 %; EOSINOPHILS ABSOLUTE (CALC) 0.09 10/3/uL (0.0-0.53); LYMPHOCYTES 5 %; LYMPHOCYTES ABSOLUTE (CALC) 0.46 10/3/uL (0.67-4.30); MONOCYTES 8 %; MONOCYTES ABSOLUTE (CALC) 0.74 10/3/uL (0.21-1.20); NEUTROPHILS ABSOLUTE (CALC) 7.91 10/3/uL (2.02-8.40); SEGMENTED NEUTROPHIL (0) 83 %; TOTAL NUCLEATED CELLS 100
[2017-01-22 07:29] LABS: PLATELET ESTIMATE SLT DEC (ADEQUATE); RBC MORPHOLOGY NORM (NORMAL)
[2017-01-22 10:28] LABS: SODIUM, URINE < 5 MEQ/L; UREA NITROGEN (RANDOM UR) 1300 MG/DL
[2017-01-23 13:00] LABS: HSV DNA TYPE 1 Not Detected (NOTDET); HSV DNA TYPE 2 Not Detected (NOTDET)
== END 2017-01-22 18:45 | disposition expired | DRG 813 ==
LOC: ER 12:58 → CDU1 15:31 → CDU2 16:24 → IMCU 01-16 17:40
PROVIDERS: Clinical Nurse Specialist; Emergency Medicine; Hospitalist; Internal Medicine; Internal Medicine Nephrology; Nurse Practitioner; Psychiatry & Neurology Neurology
PROC: 009U3ZX Drainage of Spinal Canal, Percutaneous Approach, Diagnostic (ICD-10-PCS; principal; 2017-01-14)
DX: D69.3 Immune thrombocytopenic purpura (principal); N17.9 Acute kidney failure, unspecified; I47.2 Ventricular tachycardia; G92 Toxic encephalopathy; N18.3 Chronic kidney disease, stage 3 (moderate); I24.8 Other forms of acute ischemic heart disease; I12.9 Hypertensive chronic kidney disease with stage 1 through stage 4 chronic kidney disease, or unspecified chronic kidney disease; E11.22 Type 2 diabetes mellitus with diabetic chronic kidney disease; I25.2 Old myocardial infarction; Z95.1 Presence of aortocoronary bypass graft; Z95.5 Presence of coronary angioplasty implant and graft; J44.9 Chronic obstructive pulmonary disease, unspecified; E78.5 Hyperlipidemia, unspecified; I45.10 Unspecified right bundle-branch block
CPT/HCPCS: 36415; 36569; 62270; 70450; 71010; 74000; 76700; 77003; 80048; 80053; 80061; 80069; 80074; 80076; 81001; 82043; 82140; 82306; 82533; 82570; 82607; 82746; 82945; 82962; 83036; 83615; 83735; 83880; 84145; 84157; 84300; 84439; 84443; 84484; 84540; 85025; 85610; 85652; 85730; 86022; 86140; 86141; 86592; 86787; 86850; 86900; 86901; 87070; 87086; 87205; 87327; 87389; 87529; 87529-59; 87641; 89051; 93005; 95816; 99285; A9270-GY; C1751; J0133; J0282; J0360; J1170; J1568; J1630; J1940; J3411; J3486; P9035